=== PATIENT | female | born 1995 | race African-American/Black ===

== ENCOUNTER 2019-07-06 01:43 | Observation (INO) | payer OTHER, SELFPAY ==
[2019-07-06 01:59] VITALS: BP 133/72; PULSE 136
[2019-07-06 02:00] VITALS: BP 133/75; PULSE 133; TEMP 36.6
[2019-07-06 02:05] VITALS: BMI 33.5
--- NOTE | 2019-07-13 09:04 | PM.OBTRLD ---
OB - Triage/Final Diagnosis Final Diagnosis (1) UTI in : Code(s): O23.40 - Unspecified infection of urinary tract in , unspecified trimester Status: Acute
== END 2019-07-06 02:50 | disposition home or self-care (01) ==
PROVIDERS: Admitting Provider Obstetrics & Gynecology; Visit Provider Obstetrics & Gynecology
DX: O23.43 Unspecified infection of urinary tract in pregnancy, third trimester (principal); Z3A.32 32 weeks gestation of pregnancy
CPT/HCPCS: G0378; G0379

== ENCOUNTER 2019-07-08 08:35 | Outpatient (CLI) | payer OTHER, SELFPAY ==
--- NOTE | ~2019-07-08 | US_ITS ---
EXAMINATION: US OB follow up DATE: 07/08/2019 09:08 INDICATION: Assess growth during third trimester . TECHNIQUE: Real-time ultrasound of the pelvis was performed. The interpreting radiologist was not pre sent for the study. COMPARISON: None. FINDINGS: There is a single living fetus in vertex presentation. The placenta is fundal and not low-lying. Fet al heart rate is 140 beats per minute (bpm). The amniotic fluid index is 16.3 cm, which is normal (5 th%-95%: 8.3-24.5 cm at 33 weeks estimated gestational age). The following biometric data were obtained: BPD: 8.2 cm -> 33 weeks 0 days Head circumference: 30.1 cm -> 33 weeks 3 days Abdominal circumference: 29.2 cm -> 33 weeks 1 days Femur length: 6.5 cm -> 33 weeks 3 days These measurements are concordant. Head circumference to abdominal circumference ratio: 1.03 (normal range 0.96-1.11). Estimated weight: 2152 g (+/-) 323 g. or 4 lbs. 12 oz. (+/-) 11 oz. IMPRESSION: 1. Single living fetus in vertex presentation with heart rate of 140 bpm. 2. Gestational age by ultrasound of 33 weeks 2 day(s) +/- 2 week(s) 2 day(s) with ultrasound estimate d date of delivery (DAISY) of 08/24/2019. Estimated weight is 44th percentile by Hadlock criteria when 08/25/2019 is used as the DAISY. Please correlate with clinical information or earlier ultrasounds for most accurate DAISY. 3. Normal amniotic fluid index of 16.3 cm. Reviewed, dictated and finalized at location A. IMPRESSION: 1. Single living fetus in vertex presentation with heart rate of 140 bpm. 2. Gestational age by ultrasound of 33 weeks 2 day(s) +/- 2 week(s) 2 day(s) wi th ultrasound estimated date of delivery (DAISY) of 08/24/2019. Estimated we ight is 44th percentile by Hadlock criteria when 08/25/2019 is used as the DAISY. Please correlate with clinical information or earlier ultrasounds for most accu rate DAISY. 3. Normal amniotic fluid index of 16.3 cm.
== END 2019-07-08 08:36 ==
LOC: MICIMG 08:36
PROVIDERS: Visit Provider Obstetrics & Gynecology Gynecology
DX: Z36.89 Encounter for other specified antenatal screening (principal); Z3A.33 33 weeks gestation of pregnancy
CPT/HCPCS: 76816

== ENCOUNTER 2019-08-08 06:21 | Inpatient (IN) | payer OTHER, SELFPAY ==
[2019-08-08] VITALS (89 sets, daily range): BP systolic 97–216; BP diastolic 50–195; PULSE 82–203; RESP 20; TEMP 36.6–36.8; O2SAT 92–100; BMI 43.0
[2019-08-08 06:56] LABS: Basophils Percent Auto 0.2 % (0.2-1.2); Eosinophils Absolute Auto 0.2 K/mm3 (0-0.3); Eosinophils Percent Auto 1.2 % (0-4.4); Hemoglobin 9.8 g/dL (12.0-15.0); Immature Granulocyte Absolute 0.18 K/mm3 (0.00-0.031); Immature Granulocyte Percent A 1.4 % (0-0.5); Lymphocytes Absolute Auto 2.39 K/mm3 (0.9-3.2); Lymphocytes Percent Auto 18.5 % (18.3-44.2); Mean Corpuscular HGB Conc 31.6 g/dl (32-36); Mean Corpuscular Hemoglobin 25.2 pg (26-34); Mean Corpuscular Volume 79.7 fl (80-100); Mean Platelet Volume 10.9 fl (7.4-10.4); Monocytes Percent Auto 7.7 % (2.6-8.5); Neutrophils Absolute Auto 9.2 K/mm3 (1.3-6.7); Nucleated Red Blood Cells Absolute Auto 0.2 K/mm3 (0.0-0.012); Nucleated Red Blood Cells Perc 1.7 % (0.0-0.2); Platelet Count Result 269 k/mm3 (150-375); Red Blood Count 3.89 M/mm3 (4.2-5.4); Red Cell Distribution Width 18.7 % (11.5-14.5); White Blood Count 12.9 K/mm3 (4.5-10.0)
--- NOTE | 2019-08-08 07:01 | LDADM ---
This patient, Ludwig Diaz, was admitted to Labor/Delivery/Recovery 108 on 08/08/19 at 06:21. Plans for labor, pain management and were discussed with patient. Patient/family oriented to hospital policies and general routines including ID bracelet, bed and alarms, visiting hours, pain management, procedures, bathroom and other care routines, personal items, smoking policy, room service/diet and guest tray routines, infant security routines, and visiting hours. Patient/Family are encouraged to report perceived risks to care and to ask questions if they do not understand what they are told or what they should do. See OBIX for further documentation.
[2019-08-08] MEDS: LACTATED RINGERS 1,000 ML 125 ML IV CONT (07:07)
[2019-08-08] MEDS: AMPICILLIN 2 GM/NS 100 ML 2 GM/100 ML BAG IVPB (07:07)
[2019-08-08] MEDS: OXYTOCIN 30 UNITS/NS 500 ML 30 UNITS/500 ML BAG IV CONT (07:07)
--- NOTE | 2019-08-08 10:53 | WPDOBADMIT ---
Obstetrics - Admit Note Admission Note: AROM clear fluid record reviewed. No pertinent additions to the history and/or any subsequent changes in the physical findings that are not consistent with the expected course of the were found. Additions to the history and/or subsequent changes in the physical findings follow. None.
[2019-08-08] MEDS: AMPICILLIN 1 GM/NS 50 ML 1 GM/50 ML BAG IVPB (11:21)
--- NOTE | 2019-08-08 11:55 | WPDANESEPPF ---
Anes - Initial Pre Proc Eval Date/Time: 08/08/19 11:55 Surgeon: Teetee Tovar MD Pre Op Diagnosis: Induction of Labor Patient Data Age: 24 Gender: F Height: 1.6 m Weight: 110 kg Last Vital Signs Temp 36.6 C 08/08/19 08:30 Pulse 92 08/08/19 11:45 BP 147/77 H 08/08/19 11:45 Allergies Allergy/AdvReac Type Severity Reaction Status Date / Time No Known Allergies Allergy Verified 07/29/19 13:33 Home Medications Medication Instructions Recorded Confirmed Type PNV cmb#95-ferrous fumarate-FA 1 tablet PO DAILY 07/29/19 07/29/19 History [] Laboratory Tests 08/08/19 08/08/19 08/08/19 06:48 06:48 06:48 WBC 12.9 K/mm3 H K/mm3 (4.5-10.0) RBC 3.89 M/mm3 L M/mm3 (4.2-5.4) Hgb 9.8 g/dL L g/dL (12.0-15.0) Hct 31.0 % L % (37.0-47.0) MCV 79.7 fl L fl (80-100) MCH 25.2 pg L pg (26-34) MCHC 31.6 g/dl L g/dl (32-36) RDW 18.7 % H % (11.5-14.5) Plt Count 269 k/mm3 k/mm3 (150-375) MPV 10.9 fl H fl (7.4-10.4) Immature Gran % (Auto) 1.4 % H % (0-0.5) Neut % (Auto) 71.0 % % (45.5-73.1) Lymph % (Auto) 18.5 % % (18.3-44.2) [place] % (Auto) 7.7 % % (2.6-8.5) Eos % (Auto) 1.2 % % (0-4.4) Baso % (Auto) 0.2 % % (0.2-1.2) Lymph # (Auto) 2.39 K/mm3 K/mm3 (0.9-3.2) [place] # (Auto) 1.0 K/mm3 H K/mm3 (0.1-0.6) Eos # (Auto) 0.2 K/mm3 K/mm3 (0-0.3) Baso # (Auto) 0.0 K/mm3 K/mm3 (0.0-0.1) Abs Immat Gran (auto) 0.18 K/mm3 H K/mm3 (0.00-0.031) Absolute Neuts (auto) 9.2 K/mm3 H K/mm3 (1.3-6.7) Absolute Nucleated RBC 0.2 K/mm3 H K/mm3 (0.0-0.012) Nucleated RBC % 1.7 % H % (0.0-0.2) RPR Pending Blood Type B Positive Antibody Screen Negative Patient hx anesthesia problems: none Family hx anesthesia problems: none PMFSH Family History Family History Father Prostate carcinoma Mother Hypertension Social History Social History Smoking status: Never smoker Substance use: never Gender identity (if verbalized by the patient): Female Spiritual care concerns: No Anes - Eval Final PreProcedure Day of Procedure 08/08/19 11:55 Patient weight: obese Heart: regular rate and rhythm Lungs: normal air movement Airway: Mallampati scale class III Neurological: alert and oriented Last oral intake: >/= 8 hours ASA classification: III Emergent: no Anesthetic plan: proceed Anesthesia type and monitoring: regional epidural and standard monitoring Informed Consent: The patient's anesthetic plan and its attendant risks and benefits were discussed with the patient/family/POA. Questions were solicited and answers provided to the satisfaction of the patient/family/POA.
--- NOTE | 2019-08-08 14:07 | PM.OBPRVD ---
OB - Delivery Note Procedure Delivery date: 08/08/19 Procedure: events: Labor Induction (for history of IUFD) Intrapartal events: None Induction method: AROM and per pitocin protocol Delivery monitor: external FHT and external uterine Route of delivery: Laceration description: Periurethral - 2nd Degree Delivery repair: vicryl (3-0 ) Specimen: No Estimated blood loss (mL): 100 Anesthesia type: Local Disposition: floor Baby Weeks of gestation at delivery: 37 Infant gender: Female presentation: vertex Placenta delivery description: Spontaneous cord vessel description: 3 Vessels score one minute: 9 score five minutes: 9
--- NOTE | 2019-08-08 14:09 | PM.OBDSVD ---
DS: Diagnosis Discharge Diagnosis (1) 37 weeks gestation of : Code(s): Z3A.37 - 37 weeks gestation of Status: Acute (2) (normal spontaneous vaginal delivery): Code(s): O80 - Encounter for full-term uncomplicated delivery Status: Acute OB - DS: Summary OB Procedures : NST and Ultrasound OB Procedures Intrapartum: Spontaneous Vag Delivery OB Procedures: : None Peripartum Data Infant Delivery Method: Natural Vaginal Laceration description: Periurethral - 2nd Degree complications: none Status at Discharge Functional status at discharge: independent ambulation Overall status at discharge: patient is progressing back to baseline Time Spent with Patient Time attestation: Total time spent providing and/or coordinating discharge services: DS: Data Data Completed and Pending Labs on day of discharge: Labs from last 24 hours 08/08/19 08/08/19 08/08/19 06:48 06:48 06:48 WBC 12.9 H RBC 3.89 L Hgb 9.8 L Hct 31.0 L MCV 79.7 L MCH 25.2 L MCHC 31.6 L RDW 18.7 H Plt Count 269 MPV 10.9 H Immature Gran % (Auto) 1.4 H Neut % (Auto) 71.0 Lymph % (Auto) 18.5 [place] % (Auto) 7.7 Eos % (Auto) 1.2 Baso % (Auto) 0.2 Lymph # (Auto) 2.39 [place] # (Auto) 1.0 H Eos # (Auto) 0.2 Baso # (Auto) 0.0 Abs Immat Gran (auto) 0.18 H Absolute Neuts (auto) 9.2 H Absolute Nucleated RBC 0.2 H Nucleated RBC % 1.7 H RPR Pending Blood Type B Positive Antibody Screen Negative Discharge Plan Discharge Attending physician on discharge: Teetee Tovar Discharging Clinician: Teetee Tovar Patient Disposition: Home, Self-Care Activity: pelvic rest Diet: regular Discharge Instructions: Education: Mom and Baby Guide Given to: Mother Follow-Up: Call your delivering provider's office for an appointment to be seen in: 6 Weeks Mom and baby should come to the [facility] for the follow-up appointment. Appointment Date/Time: August 12, 2019 at 11:00 am Call [phone] if you are unable to keep your appointment time. BREAST CARE: 1. Wear a snug supportive bra. 2. For engorgement discomfort: Breast Feeding: A. Apply warm moist washcloths B. Express milk as needed to relieve engorgement C. Wear loose clothing Bottle Feeding: A. May apply ice packs 3. For sore nipples: A. Identify correct latch-on B. Apply warm moist washcloths before and after nursing C. Air dry nipples after nursing D. May apply Lansinoh cream to nipples EPISIOTOMY/PERINEAL CARE: 1. Until bleeding stops, use your damaso bottle after urinating 2. Change your pad frequently throughout the day 3. You may take sitz baths several times a day (fill your bathtub with warm water and soak for 20 minutes.) Do NOT bathe in the water 4. No tub baths until seen by your physician - You may shower ACTIVITY: 1. Rest as much as possible. 2. Do not exercise or lift anything heavier than your baby (such as laundry or other children.) 3. Avoid stairs or driving as much as possible. 4. Do not put anything into the vagina. No douching, tampons, or sexual activity until seen by physician. NOTIFY PHYSICIAN IF YOU HAVE ANY QUESTIONS OR IF ANY OF THE FOLLOWING SYMPTOMS OCCUR: 1. If your episiotomy or incision becomes red, swollen, or more painful than what you have experienced in the hospital. 2. If your vaginal bleeding becomes foul smelling. 3. If your vaginal bleeding becomes more heavy than a period or if your bleeding changes from pink to bright red. However, you may pass an occasional walnut-sized clot once or twice for the first week . 4. If you experience a sharp, shooting pain in you calves. 5. If you discover a hard, reddened area on your breast or if you experience flu-like symptoms.
[2019-08-08] MEDS: IBUPROFEN 600 MG TABLET PO (16:21)
[2019-08-08] MEDS: WITCH HAZEL 40 PADS 1 PAD TOPICAL (16:22)
[2019-08-08] MEDS: BENZOCAINE 20% AER SPR (*SP) 56 GM CAN 1 SPRAY TOPICAL (16:22)
--- NOTE | 2019-08-08 17:22 | PC.NURSE ---
Patient transferred to post room #285 per wheelchair from labor and delivery. Support person present. Oriented to unit, room, information board, rooming in, admission packet and security measures. Patient verbalizes understanding.
[2019-08-09] MEDS: IBUPROFEN 600 MG TABLET PO ×3 (02:50→16:07)
[2019-08-09 03:09] LABS: Hematocrit 28.8 % (37.0-47.0)
[2019-08-09 07:29] LABS: Rapid Plasma Reagin Non-Reactive (NonReactive)
--- NOTE | 2019-08-09 07:39 | P.PNOB_ITS ---
OB - PN: Subj Subjective Date/time seen: 08/09/19 07:39 Patient comments: no complaints and pain well controlled baby status: doing well and nursing well [place] feeding status: exclusively breast feeding Narrative: No headaches or visual changes. No nausea or RUQ pain. OB - PN: Obj Data Labs CBC & Chem 7: 08/09/19 03:02 Labs: Laboratory Results - last 24 hr 08/08/19 08/08/19 08/09/19 06:48 06:48 03:02 Hgb 9.0 L Hct 28.8 L RPR Non-reactive Blood Type B Positive Antibody Screen Negative OB - PN A/P Plan day: 1 Plan: routine care Comments: BP elevated and I was not informed. No PIH symptoms. Time Spent With Patient Time: Total time spent is greater than 50% in coordination of care (as documented) at patient's floor/unit and/or counseling patient: Exam GI: Other: RUQ nontender : Bimanual exam- vagina & uterus: other (Uterus firm, nt @U)
[2019-08-09 08:25] VITALS: BP 129/81; PULSE 92; RESP 18; TEMP 37.5; O2SAT 100
[2019-08-09] MEDS: MULTIVIT/MIN/PREN/FOL AC/IRON TABLET 1 TAB PO (08:52)
[2019-08-09] MEDS: DOCUSATE SODIUM 100 MG CAPSULE PO ×2 (08:52→16:07)
[2019-08-09] MEDS: POLYSACCHARIDE IRON COMPLEX 150 MG CAPSULE PO ×2 (08:52→16:07)
--- NOTE | 2019-08-09 15:15 | PC.NURSE ---
Early attempt to consult with pt., mother in restroom. Mother states she breastfed last child without issues, and reports this is sleepy and will latch eagerly at times. Mother states has been sleepy last two feedings she has supplemented formula. Mother states she wishes to breastfeed. Requested mother call out next feeding for assist. Discussed stimulation and milk supply. Suggested mother initiate pumping if infant does not nurse.
--- NOTE | 2019-08-09 15:35 | PC.NURSE ---
Breast pump provided due to mother's wishes and ineffective feeding. Instructions given on breast pump care and usage, pumping schedule, nipple care, and collection and storage of breast milk. Encouraged [id number], breast massage and manual expression to stimulate supply. Assessed patient for correct flange size, placement and draw. Patient verbalizes and demonstrates understanding of instructions.
[2019-08-09 19:45] VITALS: BP 144/87; PULSE 105; RESP 16; TEMP 36.7
[2019-08-10] MEDS: POLYSACCHARIDE IRON COMPLEX 150 MG CAPSULE PO (08:03)
[2019-08-10] MEDS: MULTIVIT/MIN/PREN/FOL AC/IRON TABLET 1 TAB PO (08:04)
[2019-08-10] MEDS: DOCUSATE SODIUM 100 MG CAPSULE PO (08:04)
[2019-08-10 08:30] VITALS: BP 135/90; PULSE 82; RESP 18; TEMP 37.4; O2SAT 100
--- NOTE | 2019-08-10 10:30 | PC.NURSE ---
Consult with pt., mother states she pumped a few times during the night and was unable to pump more than a few drops. Assured mother this is normal and milk should transition in within a few days. Offered to assist with next feeding. Mother reports she will continue to attempt infant to breast each feeding and supplement all wishes. Mother states she is comfortable if does not latch she will just formula feed. Discussed pumping and bottle feeding expressed milk. Mother states if her milk comes in she may pump and give by bottle. Discussed how regular stimulation may assist with milk production. Mother is feeding as required and waking infant to feed if needed. is currently meeting outcomes for weight, output, jaundice and feeding frequencies. Mother states she feels confident to continue current feeding plan at home. Reviewed transition to breast milk, signs of adequate intake, and engorgement/relief. Instructed to call ICP if intake/output less than required. Reviewed regular medications mother is taking. Information provided per Lyn. Reviewed community resources on the [facility] website and in the Mom/Baby guide. Information on outpatient services provided. Mother has no further questions at this time.
[2019-08-12 10:41] VITALS: BP 164/97; PULSE 86; RESP 20; TEMP 37.3; O2SAT 100
== END 2019-08-10 13:21 | disposition home or self-care (01) | DRG 807 ==
LOC: ANHLDR 14:10 → ANHOB2 08-09 09:07 → ANHLDR 08-11 13:19 → ANHOB2 08-11 13:19
PROVIDERS: Admitting Provider Obstetrics & Gynecology Gynecology; Visit Provider Obstetrics & Gynecology
DX: O99.214 Obesity complicating childbirth (principal); Z37.0 Single live birth; O99.824 Streptococcus B carrier state complicating childbirth; Z3A.37 37 weeks gestation of pregnancy; Z23 Encounter for immunization; E66.9 Obesity, unspecified; O70.1 Second degree perineal laceration during delivery; O71.82 Other specified trauma to perineum and vulva
CPT/HCPCS: 36415; 85014; 85018; 85025; 86592; 86850; 86900; 86901; A9270; J0290; J2590; J2795; J3010; J7120

== ENCOUNTER 2019-08-12 12:09 | Outpatient (CLI) | payer OTHER, SELFPAY ==
[2019-08-12] VITALS (21 sets, daily range): BP systolic 143–170; BP diastolic 69–95; PULSE 71–88
[2019-08-12 13:04] LABS: Basophils Percent Auto 0.4 % (0.2-1.2); Eosinophils Absolute Auto 0.2 K/mm3 (0-0.3); Eosinophils Percent Auto 1.7 % (0-4.4); Hematocrit 33.7 % (37.0-47.0); Hemoglobin 10.7 g/dL (12.0-15.0); Immature Granulocyte Absolute 0.08 K/mm3 (0.00-0.031); Immature Granulocyte Percent A 0.9 % (0-0.5); Lymphocytes Absolute Auto 1.54 K/mm3 (0.9-3.2); Lymphocytes Percent Auto 16.8 % (18.3-44.2); Mean Corpuscular HGB Conc 31.8 g/dl (32-36); Mean Corpuscular Hemoglobin 26.2 pg (26-34); Mean Corpuscular Volume 82.4 fl (80-100); Mean Platelet Volume 10.4 fl (7.4-10.4); Monocytes Absolute Auto 0.6 K/mm3 (0.1-0.6); Monocytes Percent Auto 6.9 % (2.6-8.5); Neutrophils Absolute Auto 6.7 K/mm3 (1.3-6.7); Neutrophils Percent Auto 73.3 % (45.5-73.1); Nucleated Red Blood Cells Absolute Auto 0.1 K/mm3 (0.0-0.012); Nucleated Red Blood Cells Perc 0.9 % (0.0-0.2); Platelet Count Result 256 k/mm3 (150-375); Red Blood Count 4.09 M/mm3 (4.2-5.4); Red Cell Distribution Width 20.8 % (11.5-14.5); White Blood Count 9.2 K/mm3 (4.5-10.0)
[2019-08-12 13:16] LABS: Alanine Aminotransferase 36 U/L (4-35); Albumin Level 3.8 g/dL (3.5-5.1); Alkaline Phosphatase 162 U/L (38-126); Aspartate Amino Transferase 58 U/L (14-36); Bilirubin,Total 0.5 mg/dL (0.2-1.3); Blood Urea Nitrogen 7 mg/dL (7-17); Calcium 9.1 mg/dL (8.4-10.2); Carbon Dioxide 24 mmol/L (22-30); Chloride 110 mmol/L (98-107); Estimated Glomerular Filt Rate > 60; Glucose 84 mg/dL (65-105); Potassium 3.5 mmol/L (3.4-5.0); Sodium 139 mmol/L (137-145); Uric Acid 4.8 mg/dL (2.5-7.5)
--- NOTE | 2019-08-12 13:39 | PC.NURSE ---
Dr Tovar notified of Bp's and lab results.
[2019-08-12] MEDS: NIFEdipine 30 MG TAB.ER.24 PO (13:50)
--- NOTE | 2019-08-12 15:19 | PC.NURSE ---
Dr Tovar undated on BP's.
[2019-08-12] MEDS: LABETALOL HCL 100 MG TABLET PO ×2 (15:23→16:45)
--- NOTE | 2019-08-12 17:54 | PC.NURSE ---
Dr Tovar notified of BP's and repeat Labatalol dose.
== END 2019-08-12 17:57 | disposition home or self-care (01) ==
LOC: ANHOBOP 12:13 → ANHOBPP 12:16
PROVIDERS: Family Provider Obstetrics & Gynecology Gynecology; Visit Provider Obstetrics & Gynecology Gynecology
DX: O13.9 Gestational [pregnancy-induced] hypertension without significant proteinuria, unspecified trimester (principal)
CPT/HCPCS: 36415; 80053; 84550; 85025; 99199; A9270

== ENCOUNTER 2019-09-30 00:23 | Outpatient (CLI) | payer OTHER, SELFPAY ==
[2019-09-30 17:53] LABS: SARS-CoV-2 RNA PCR Negative
== END 2019-09-30 00:24 | disposition home or self-care (01) ==
PROVIDERS: Visit Provider Obstetrics & Gynecology Gynecology
DX: Z20.828 Contact with and (suspected) exposure to other viral communicable diseases (principal); Z01.812 Encounter for preprocedural laboratory examination
CPT/HCPCS: 87635; C9803; U0003

== ENCOUNTER 2019-09-30 09:09 | Outpatient (CLI) | payer OTHER, SELFPAY ==
--- NOTE | 2019-09-30 09:11 | ECG_ITS ---
Measurements Intervals [place] Rate: 68 P: 23 AL: 169 QRS: 14 QRSD: 94 T: 13 QT: 379 QTc: 404 Interpretive Statements SINUS RHYTHM BORDERLINE T WAVE ABNORMALITY- ANTERIOR LEADS BASELINE ARTIFACT- I, II, III, AVR, AVL, AVF BORDERLINE ECG Electronically Signed On 09-30-2019 10:48:47 CDT by Troy Marino D.O.
[2019-09-30 09:48] LABS: Hematocrit 41.2 % (37.0-47.0); Hemoglobin 13.2 g/dL (12.0-15.0)
== END 2019-09-30 09:10 | disposition home or self-care (01) ==
LOC: ANHSURGERY 09:11
PROVIDERS: Anesthesiology; Visit Provider Obstetrics & Gynecology Gynecology
DX: D64.9 Anemia, unspecified (principal); I10 Essential (primary) hypertension
CPT/HCPCS: 36415; 85014; 85018; 87635; 93005; C9803; U0003

== ENCOUNTER 2021-05-10 16:34 | Emergency (ER) | payer BC, SELFPAY ==
--- NOTE | 2021-05-10 18:20 | PC.NURSE ---
Pt called for triage with no answer
== END 2021-05-10 19:07 | disposition left against medical advice (07) ==
DX: Z53.21 Procedure and treatment not carried out due to patient leaving prior to being seen by health care provider (principal)
CPT/HCPCS: 99199

== ENCOUNTER 2021-07-17 15:00 | Emergency (ER) | payer BC, SELFPAY ==
[2021-07-17] VITALS (8 sets, daily range): BP systolic 146–163; BP diastolic 78–98; PULSE 92–124; RESP 14–25; TEMP 36.4; O2SAT 99–100
--- NOTE | ~2021-07-17 | XR_ITS ---
EXAMINATION: XR chest 2V EXAM DATE: 07/17/2021 15:31 INDICATION: Chest pain, L arm pain. TECHNIQUE: Frontal and lateral projections of the chest obtained and reviewed. There is no prior anthony dy for comparison. FINDINGS: The lungs are clear. There are no pleural effusions. The cardiomediastinal silhouette is within normal limits. There is no pneumothorax suspected. The bones and soft tissues are unremarkab le. IMPRESSION: Normal chest x-ray exam. Reviewed, dictated and finalized at location A. IMPRESSION: Normal chest x-ray exam.
--- NOTE | ~2021-07-17 | CT_ITS ---
EXAMINATION: CTA chest PE protocol DATE: 07/17/2021 17:52 INDICATION: chest pain TECHNIQUE: A CT abdomen and pelvis with contrast was performed initially in error. Subsequently a com puted tomography angiography (CTA) of the chest was performed with 200 mL Omnipaque-350 intravenous c ontrast timed to evaluate the pulmonary arteries. Coronal maximum intensity projection 3D-reconstruct ions were created by the technologist. The dose-length product (DLP) was 1083.5 mGy-cm. Automated exp osure control and iterative reconstruction technique were employed. COMPARISON: 05/29/2013. FINDINGS: Study quality: Degraded by quantum mottle, motion, and contrast phase such that subsegmental and non- occlusive segmental emboli could be missed. Pulmonary arteries: No definite pulmonary emboli detected. Thoracic aorta: Normal. Lung parenchyma and airways: Clear. Thoracic inlet, axillae and chest wall: Unremarkable. Mediastinum: Normal. Heart and pericardium: Mild cardiomegaly. Coronary artery calcifications: Absent. Pleura: Unremarkable. Upper abdomen: No significant finding. Bones: No acute osseous finding. CT abdomen and pelvis: Liver, gallbladder, biliary ducts, pancreas, spleen, adrenals, and kidneys are normal. Mild gastric wall edema as can be seen with gastritis. The rectum is dilated to 6.2 cm by fo rmed stool. Otherwise the bowel is normal. Bladder wall thickening as can be seen with cystitis versu s lack of bladder distention. Left corpus luteal cyst. Otherwise the pelvic contents are normal. IMPRESSION: Exam limited such that nonocclusive segmental and occlusive subsegmental emboli missed. Within that c onstraint, no definite pulmonary embolism detected. Incidentally discovered abdominopelvic findings: Fecal impaction, possible gastritis, possible cystitis. Reviewed, dictated and finalized at location K. IMPRESSION: Exam limited such that nonocclusive segmental and occlusive subsegmental emboli missed. Within that constraint, no definite pulmonary embolism detected. Incid entally discovered abdominopelvic findings: Fecal impaction, possible gastritis , possible cystitis.
--- NOTE | 2021-07-17 15:01 | ECG_ITS ---
Measurements Intervals [place] Rate: 116 P: 53 OR: 181 QRS: 34 QRSD: 83 T: 17 QT: 288 QTc: 402 Interpretive Statements SINUS TACHYCARDIA ABNORMAL RHYTHM ECG COMPARED TO ECG 09/30/2019 09:55:40 SINUS TACHYCARDIA NOW PRESENT Electronically Signed On 07-17-2021 21:20:28 CDT by Debbie Menendez M.D.
[2021-07-17 15:30] LABS: Basophils Absolute Auto 0.1 K/mm3 (0.0-0.1); Basophils Percent Auto 0.5 % (0.2-1.2); Eosinophils Absolute Auto 0.2 K/mm3 (0-0.3); Eosinophils Percent Auto 1.8 % (0-4.4); Hematocrit 41.4 % (37.0-47.0); Hemoglobin 13.5 g/dL (12.0-15.0); Immature Granulocyte Absolute 0.02 K/mm3 (0.00-0.031); Immature Granulocyte Percent A 0.2 % (0-0.5); Lymphocytes Absolute Auto 3.11 K/mm3 (0.9-3.2); Lymphocytes Percent Auto 32.9 % (18.3-44.2); Mean Corpuscular HGB Conc 32.6 g/dl (32-36); Mean Corpuscular Hemoglobin 29.8 pg (26-34); Mean Corpuscular Volume 91.4 fl (80-100); Mean Platelet Volume 10.6 fl (7.4-10.4); Monocytes Absolute Auto 0.8 K/mm3 (0.1-0.6); Monocytes Percent Auto 8.8 % (2.6-8.5); Neutrophils Absolute Auto 5.3 K/mm3 (1.3-6.7); Neutrophils Percent Auto 55.8 % (45.5-73.1); Platelet Count Result 288 k/mm3 (150-375); Red Blood Count 4.53 M/mm3 (4.2-5.4); Red Cell Distribution Width 13.2 % (11.5-14.5); White Blood Count 9.4 K/mm3 (4.5-10.0)
[2021-07-17 15:42] LABS: Alanine Aminotransferase 16 U/L (4-35); Albumin Level 4.4 g/dL (3.5-5.1); Alkaline Phosphatase 127 U/L (38-126); Anion Gap 8 mmol/L (8-16); Aspartate Amino Transferase 23 U/L (14-36); Bilirubin,Total 0.2 mg/dL (0.2-1.3); Blood Urea Nitrogen 17 mg/dL (7-17); Calcium 8.9 mg/dL (8.4-10.2); Carbon Dioxide 21 mmol/L (22-30); Chloride 107 mmol/L (98-107); Estimated CRCL calculation 123 ml/min; Estimated Glomerular Filt Rate > 60; Glucose 107 mg/dL (65-110); Lipase 103 U/L (23-300); Potassium 3.8 mmol/L (3.4-5.0); Sodium 136 mmol/L (137-145)
[2021-07-17 15:44] LABS: Prothrombin Time 12.4 Seconds (11.1-14.7)
[2021-07-17 15:45] LABS: Partial Thromboplastin Time 27.1 SECONDS (22.3-36.8)
[2021-07-17 15:54] LABS: Troponin I < 0.012 ng/mL (0.000-0.034)
[2021-07-17 16:00] LABS: D Dimer 0.26 ug/mL (<0.48)
--- NOTE | 2021-07-17 16:28 | ED.CHESTPAIN ---
HPI - Chest Pain General Chief Complaint: Chest Pain <Isaac Cisse DO - Last Filed: 07/17/21 19:09> Stated Complaint: chest pain, L arm pain <Isaac Cisse DO - Last Filed: 07/17/21 19:09> Time Seen by Provider: 07/17/21 15:36 <Isaac Cisse DO - Last Filed: 07/17/21 19:09> Source: RN notes reviewed <Isaac Cisse DO - Last Filed: 07/17/21 19:09> History of Present Illness HPI narrative: Patient presents emergency department from home for chest pain. Patient states the chest pain began approximately 10 AM today the pain was located over the left side of the chest was intermittent in nature and was described as a pressure she states that this afternoon she began to develop pain in her left arm states that at this time she has no pain in her arm or in her chest she denies any fevers or chills shortness of breath abdominal pain nausea vomiting or any other symptoms. Denies any previous cardiac history <Isaac Cisse DO - Last Filed: 07/17/21 19:09> Related Data Home Medications: Home Medications Medication Instructions Recorded Confirmed escitalopram oxalate 10 mg PO DAILY 09/21/19 09/21/19 <Isaac Cisse DO - Last Filed: 07/17/21 19:09> Allergies/Adverse Reactions: Allergies Allergy/AdvReac Type Severity Reaction Status Date / Time No Known Allergies Allergy Verified 09/21/19 13:01 <Isaac Cisse DO - Last Filed: 07/17/21 19:09> Review of Systems Review of Systems: Gen.: Denies fevers or chills ENT: Denies congestion Respiratory: Denies shortness of breath or cough CV: See HPI GI: Denies abdominal pain nausea, emesis or diarrhea Musculoskeletal: Denies back pain or muscle pain Neuro: Denies numbness, tingling, weakness or focal weakness Skin: Denies rash Except as documented, all other systems reviewed and negative <DO Twin Wolff Last Filed: 07/17/21 19:09> PMFSH Past Medical History Medical History: Medical History Anemia Depression HTN (hypertension) Obesity <Isaac Cisse DO - Last Filed: 07/17/21 19:09> Family History Family History: Family History Father Prostate carcinoma Mother Hypertension <Isaac Cisse DO - Last Filed: 07/17/21 19:09> Social History Social History: Social History Smoking status: Never smoker Substance use: never Gender identity (if verbalized by the patient): Female Spiritual care concerns: No <Isaac Cisse DO - Last Filed: 07/17/21 19:09> Exam Narrative: APPEARANCE: No acute distress, nontoxic, resting in bed EYES: EOMI HEENT: Normocephalic, atraumatic, OMM RESPIRATORY: No respiratory distress Clear to auscultation bilaterally with no rhonchi wheezing or rales. CARDIOVASCULAR: Regular rate and rhythm without murmurs rubs or gallops. ABDOMINAL: Soft, nontender, nondistended, no rebound or guarding MUSCULOSKELETAl: Moves all extremities. No clubbing, cyanosis or edema. NEURO: Awake and alert. Following commands, speech normal, no focal deficits SKIN:: Warm, dry. No rashes lesions or abrasions PSYCHIATRIC: Normal affect/mood, <Isaac Cisse DO - Last Filed: 07/17/21 19:09> Course Course Emergency Course: Patient with a CTA of the chest ordered secondary to tachycardia CT scan ended up getting CT abdomen pelvis on top of chest this read does show fecal impaction I discussed with the patient who states she has been constipated been try to get into see GI has not had a bowel movement in quite some time discussed with patient we will give enema Patient with no chest pain in ED Discussed with patient results of workup and diagnosis. Discussed need for follow-up with primary care, proper use of medication, and reasons to return to the emergency department. Patient unde
[2021-07-17] MEDS: ASPIRIN 81 MG CHEWABLE TABLET 324 MG PO (16:43)
[2021-07-17] MEDS: SODIUM CHLORIDE 0.9% IV 1,000 ML 999 ML IV CONT (16:43)
[2021-07-17 19:19] LABS: Troponin I < 0.012 ng/mL (0.000-0.034)
== END 2021-07-17 21:14 | disposition home or self-care (01) ==
PROVIDERS: Family Medicine; Emergency Provider Emergency Medicine
DX: R07.9 Chest pain, unspecified (principal); K59.00 Constipation, unspecified; R00.0 Tachycardia, unspecified; D64.9 Anemia, unspecified; F32.9 Major depressive disorder, single episode, unspecified; I10 Essential (primary) hypertension
CPT/HCPCS: 36415; 71046; 71275; 80053; 81025; 83690; 84484; 85025; 85380; 85610; 85730; 93005; 96360; 96361; 99284; A9270; J7030; Q9967

== ENCOUNTER 2022-06-02 15:34 | Emergency (ER) | payer BC, SELFPAY ==
[2022-06-02 16:13] VITALS: BP 154/85; PULSE 112; RESP 12; TEMP 36.9; O2SAT 100
--- NOTE | 2022-06-02 16:19 | ECG_ITS ---
Measurements Intervals [place] Rate: 91 P: 49 HI: 173 QRS: 28 QRSD: 78 T: 22 QT: 346 QTc: 426 Interpretive Statements SINUS RHYTHM WITH SINUS ARRHYTHMIA POSSIBLE LEFT ATRIAL ENLARGEMENT [-0.1mV P WAVE IN V1/V2] BORDERLINE ECG NO PREVIOUS ECG AVAILABLE FOR COMPARISON Electronically Signed On 06-03-2022 14:07:58 EVAPORATOR REPAIRER by Luciano Walton M.D.
[2022-06-02 16:43] LABS: Basophils Absolute Auto 0.1 K/mm3 (0.0-0.1); Basophils Percent Auto 0.6 % (0.2-1.2); Eosinophils Absolute Auto 0.3 K/mm3 (0-0.3); Eosinophils Percent Auto 3.7 % (0-4.4); Hematocrit 40.2 % (37.0-47.0); Hemoglobin 13.2 g/dL (12.0-15.0); Immature Granulocyte Absolute 0.02 K/mm3 (0.00-0.031); Immature Granulocyte Percent A 0.3 % (0-0.5); Lymphocytes Absolute Auto 2.29 K/mm3 (0.9-3.2); Lymphocytes Percent Auto 29.5 % (18.3-44.2); Mean Corpuscular HGB Conc 32.8 g/dl (32-36); Mean Corpuscular Hemoglobin 29.5 pg (26-34); Mean Corpuscular Volume 89.7 fl (80-100); Mean Platelet Volume 10.3 fl (7.4-10.4); Monocytes Absolute Auto 0.6 K/mm3 (0.1-0.6); Neutrophils Absolute Auto 4.5 K/mm3 (1.3-6.7); Neutrophils Percent Auto 57.9 % (45.5-73.1); Platelet Count Result 330 k/mm3 (150-375); Red Blood Count 4.48 M/mm3 (4.2-5.4); Red Cell Distribution Width 13.2 % (11.5-14.5); White Blood Count 7.8 K/mm3 (4.5-10.0)
[2022-06-02 16:52] LABS: Alanine Aminotransferase 21 U/L (6-35); Albumin Level 4.7 g/dL (3.5-5.1); Alkaline Phosphatase 106 U/L (38-126); Anion Gap 5 mmol/L (8-16); Aspartate Amino Transferase 26 U/L (14-36); Bilirubin,Total 0.5 mg/dL (0.2-1.3); Blood Urea Nitrogen 15 mg/dL (7-17); Carbon Dioxide 27 mmol/L (22-30); Chloride 104 mmol/L (98-107); Estimated Glomerular Filt Rate > 60; Glucose 103 mg/dL (65-110); Potassium 3.5 mmol/L (3.4-5.0); Sodium 136 mmol/L (137-145)
--- NOTE | 2022-06-02 20:29 | PC.NURSE ---
Pt called or repeat vitals, no answer
--- NOTE | 2022-06-02 20:50 | PC.NURSE ---
Pt called for repeat vitals, no answer
== END 2022-06-02 21:23 | disposition left against medical advice (07) ==
LOC: ANHED 20:55
PROVIDERS: Emergency Provider Emergency Medicine
DX: R10.9 Unspecified abdominal pain (principal)
CPT/HCPCS: 36415; 80053; 85025; 93005; 99199

== ENCOUNTER 2023-04-08 11:32 | Emergency (ER) | payer BC, SELFPAY ==
--- NOTE | ~2023-04-08 | XR_ITS ---
EXAMINATION: XR chest 2V DATE: 04/08/2023 12:09 INDICATION: Left chest pain. TECHNIQUE: Frontal and lateral views of the chest were obtained. COMPARISON: Chest 2 views 07/17/2021, chest CT 07/17/2021 FINDINGS: There is no pneumonia, pleural effusion, or pneumothorax. The heart size is normal. IMPRESSION: 1. No acute cardiopulmonary disease. Reviewed, dictated and finalized at location [facility]. [facility]
--- NOTE | 2023-04-08 11:34 | ECG_ITS ---
Measurements Intervals [place] Rate: 127 P: 57 DC: 162 QRS: 41 QRSD: 87 T: 22 QT: 289 QTc: 421 Interpretive Statements SINUS TACHYCARDIA NONSPECIFIC T-WAVE ABNORMALITY ABNORMAL RHYTHM ECG COMPARED TO ECG 07/17/2021 15:09:01 SINUS TACHYCARDIA NOW PRESENT Electronically Signed On 04-08-2023 21:00:32 MAILING MACHINE OPERATOR by Joan Avalos M.D.
[2023-04-08 11:42] VITALS: BP 149/72; PULSE 123; RESP 16; TEMP 36.7; O2SAT 100
[2023-04-08 12:00] LABS: Basophils Absolute Auto 0.1 K/mm3 (0.0-0.1); Basophils Percent Auto 0.6 % (0.2-1.2); Eosinophils Absolute Auto 0.2 K/mm3 (0-0.3); Eosinophils Percent Auto 1.9 % (0-4.4); Hematocrit 40.5 % (37.0-47.0); Hemoglobin 13.1 g/dL (12.0-15.0); Immature Granulocyte Absolute 0.02 K/mm3 (0.00-0.031); Immature Granulocyte Percent A 0.3 % (0-0.5); Lymphocytes Absolute Auto 2.18 K/mm3 (0.9-3.2); Lymphocytes Percent Auto 28.3 % (18.3-44.2); Mean Corpuscular HGB Conc 32.3 g/dl (32-36); Mean Corpuscular Volume 92.7 fl (80-100); Mean Platelet Volume 10.3 fl (7.4-10.4); Monocytes Absolute Auto 0.7 K/mm3 (0.1-0.6); Monocytes Percent Auto 8.6 % (2.6-8.5); Neutrophils Absolute Auto 4.7 K/mm3 (1.3-6.7); Neutrophils Percent Auto 60.3 % (45.5-73.1); Platelet Count Result 310 k/mm3 (150-375); Red Blood Count 4.37 M/mm3 (4.2-5.4); Red Cell Distribution Width 13.3 % (11.5-14.5); White Blood Count 7.7 K/mm3 (4.5-10.0)
[2023-04-08 12:10] LABS: Alanine Aminotransferase 23 U/L (6-35); Albumin Level 4.3 g/dL (3.5-5.1); Alkaline Phosphatase 109 U/L (38-126); Anion Gap 10 mmol/L (8-16); Aspartate Amino Transferase 26 U/L (14-36); Bilirubin,Total 0.5 mg/dL (0.2-1.3); Blood Urea Nitrogen 11 mg/dL (7-17); Carbon Dioxide 22 mmol/L (22-30); Chloride 107 mmol/L (98-107); Estimated CRCL calculation 130 ml/min; Estimated Glomerular Filt Rate > 60; Glucose 111 mg/dL (65-110); Lipase 121 U/L (23-300); Potassium 3.2 mmol/L (3.4-5.0); Sodium 139 mmol/L (137-145)
[2023-04-08 12:11] LABS: Prothrombin Time 13.1 Seconds (11.1-14.7)
[2023-04-08 12:12] LABS: Partial Thromboplastin Time 26.2 SECONDS (22.3-36.8)
[2023-04-08 12:21] LABS: Troponin I < 0.012 ng/mL (0.000-0.034)
--- NOTE | 2023-04-08 14:19 | ED.CHESTPAIN ---
HPI - Chest Pain General Chief Complaint: Chest Pain Stated Complaint: chest pain Time Seen by Provider: 04/08/23 14:18 History of Present Illness HPI narrative: Patient is a 28-year-old female with no significant medical history here today with chest pain. She states around 9:00 a.m. this morning she began having some pain down her left arm which seemed to radiate down throughout her chest and low bilateral breasts. She notes she got up to get some helpful she was at work and the pain seemed to localize underneath her right breast. She denies any prior cardiac history, denies any cardiac risk factors, denies any prior history of PE or DVT. No recent surgeries, travel, no blood thinner use, no OCP use, no cigarette smoking. She notes she has had a runny nose over the last 2 days which seems to be improving. No known sick contacts. No associated diaphoresis, shortness of breath, nausea. Related Data Home Medications Medication Instructions Recorded Confirmed escitalopram oxalate 10 mg tablet 10 mg PO DAILY 09/21/19 09/21/19 Allergies Allergy/AdvReac Type Severity Reaction Status Date / Time No Known Allergies Allergy Verified 09/21/19 13:01 Review of Systems Review of Systems: All systems reviewed & are unremarkable except as noted in HPI and below PMFSH Past Medical History Medical History Anemia Depression HTN (hypertension) Obesity Family History Family History Father Prostate carcinoma Mother Hypertension Social History Social History Smoking status: Never smoker Substance use: never Gender identity (if verbalized by the patient): Female Spiritual care concerns: No Exam Narrative: GENERAL: Well-appearing, well-nourished, and in no acute distress. HEAD: Normocephalic, atraumatic. EYES: PERRLA and EOMI. ENT: Nares clear. Mucous membranes moist. NECK: Supple. CHEST: Clear to auscultation. No respiratory distress. HEART: Regular rate and rhythm. Normal peripheral pulses. ABDOMEN: Soft, nontender, nondistended. EXTREMITIES: Normal range of motion. No leg edema, no calf tenderness. SKIN: Warm, dry, no rash. NEURO: No focal deficits. Alert and oriented x3. PSYCH: Normal mood and affect. Course Course Emergency Course: Chart review performed. Patient here with chest pain. Vitals show tachycardia, HTN. She appears to have been seen here in the ED in 2021 for chest pain. Patient seen and evaluated, non toxic appearing. Patient denies cardiac risk factors. She is tachycardic, notes she has white coat hypertension and tachycardia which is typically always normal at home but gets fast when she is in the hospital setting. Will do screening d-dimer given tachycardia, repeat troponin and EKG pending. COVID, Influenza, RSV ordered. D-dimer negative. Repeat troponin negative. Will reevaluate. The results of pertinent diagnostic studies and exam findings were discussed. The patient?s provisional diagnosis and plan of care were discussed with the patient and present family. The patient and/or present family expressed understanding of the diagnosis and plan. The nurse was instructed to provide written instructions and appropriate follow-up information. The patient understands their need and responsibility to obtain additional follow-up as instructed. The risks of medications administered and prescribed were discussed with the patient and family present. Vital Signs Vital signs: Vital Signs Temperature 98.1 F 04/08/23 11:42 Pulse Rate 123 H 04/08/23 11:42 Respiratory Rate 16 04/08/23 11:42 Blood Pressure 149/72 H 04/08/23 11:42 Pulse Oximetry 100 04/08/23 11:42 Oxygen Delivery Room Air 04/08/23 11:42 Temperature 98.0 F 04/08/23 16:06 Pulse Rate 103 H 04/08/23 16:06 Respiratory Rate 16 04/08/23 16:06 B
[2023-04-08 14:20] VITALS: BP 169/81; PULSE 113; RESP 16; TEMP 36.8; O2SAT 100
[2023-04-08 14:29] VITALS: BP 169/81; PULSE 131; RESP 16; O2SAT 100
[2023-04-08 14:32] VITALS: BP 155/81; PULSE 118; RESP 15; O2SAT 100
[2023-04-08 14:47] LABS: D Dimer < 0.27 ug/mL (<0.48)
--- NOTE | 2023-04-08 14:59 | ECG_ITS ---
Measurements Intervals [place] Rate: 109 P: 60 MO: 132 QRS: 43 QRSD: 89 T: 31 QT: 338 QTc: 456 Interpretive Statements SINUS TACHYCARDIA ABNORMAL RHYTHM ECG COMPARED TO ECG 06/02/2022 16:22:49 SINUS TACHYCARDIA NOW PRESENT Electronically Signed On 04-08-2023 21:07:35 [facility]ARK[place] by Joan Avalos M.D.
[2023-04-08 15:02] VITALS: BP 144/88; PULSE 116; RESP 19; O2SAT 100
[2023-04-08 15:08] LABS: Troponin I < 0.012 ng/mL (0.000-0.034)
[2023-04-08 15:47] LABS: Influenza A QL RT-PCR Negative (Negative); Influenza B QL RT-PCR Negative (Negative); RSV RNA, RT-PCR Negative (Negative); SARS-CoV-2 RNA PCR Negative (Negative)
[2023-04-08 16:06] VITALS: BP 141/87; PULSE 103; RESP 16; TEMP 36.7; O2SAT 100
[2023-04-08] MEDS: KETOROLAC 15 MG/ML VIAL (*BKC) (16:17)
== END 2023-04-08 16:20 | disposition home or self-care (01) ==
PROVIDERS: Emergency Medicine; Emergency Provider Student in an Organized Health Care Education/Training Program; PCP Nurse Practitioner Family
DX: R07.89 Other chest pain (principal); R00.0 Tachycardia, unspecified; I10 Essential (primary) hypertension; Z20.822 Contact with and (suspected) exposure to COVID-19
CPT/HCPCS: 36415; 71046; 80053; 83690; 84484; 85025; 85380; 85610; 85730; 87637; 93005; 96372; 99284; J1885